=== PATIENT | female | born 1980 | race Caucasian/White ===

== ENCOUNTER 2021-11-09 05:30 | Day surgery (SDC) | payer BC | END 2021-11-09 10:47 | disposition home or self-care (01) | LOC: ATC 05:30 | DX: D50.9 Iron deficiency anemia, unspecified (principal); L66.1 Lichen planopilaris; L21.8 Other seborrheic dermatitis; L65.0 Telogen effluvium | CPT/HCPCS: J2916 ==

== ENCOUNTER → 2023-02-03 | Outpatient (CLI) | payer BC | LOC: LAB 16:32 → LAB SHORT 16:32 | DX: L73.9 Follicular disorder, unspecified (principal) | CPT/HCPCS: 87070; 87075; 87186; 87205 ==

== ENCOUNTER → 2023-03-15 | Outpatient (CLI) | payer BC | LOC: LAB 12:00 → LAB SHORT 12:00 | DX: J02.9 Acute pharyngitis, unspecified (principal) | CPT/HCPCS: 87081 ==

== ENCOUNTER → 2023-05-04 | Outpatient (CLI) | payer BC | LOC: LAB SHORT 07:00 → LAB 07:00 | DX: L73.9 Follicular disorder, unspecified (principal) | CPT/HCPCS: 87070; 87205 ==